=== PATIENT | female | born 1980 | race Caucasian/White ===

== ENCOUNTER 2017-03-26 11:48 | Outpatient (CLI) | payer MEDICAID ==
[~2017-03-26] VITALS: Ht 165.1 cm; Wt 75.8 kg
--- NOTE | 2017-03-26 12:39 | RADRPT ---
PROCEDURE: US OB biophysical profile. CLINICAL INDICATION: evaluation, contractions TECHNIQUE: Multiple sonographic images of the pelvis were obtained. The images were reviewed on a PACS workstation. COMPARISON: No prior studies are available for comparison. FINDINGS: There is a single viable intrauterine gestation. Cardiac activity is present with 163 beats per min [place]. There is a vertex presentation. The placenta is posterior. There is no evidence of placental abruption. There is a normal amount of amniotic fluid with an ANGEL = 13.0 cm. Biophysical profile: movement 2/2 tone 2/2. breathing 2/2 ANGEL 2/2 Total 04/17 RPTAT: AA . IMPRESSION: Normal biophysical profile. Normal ANGEL. Physician David Date Time Electronically viewed and signed by Physician David on 03/26/2017 12:39 RA/
[2017-03-26 12:42] VITALS: Ht 165.1 cm; Wt 75.8 kg
[2017-03-26 12:43] VITALS: BP 112/56; PULSE 101; RESP 18
[2017-03-26] MEDS ORDERED: PRENAT PO (12:45)
--- NOTE | 2017-03-26 13:02 | QN ---
Documentation Comment iup 36 weeks cat II tracing vss exam wnl a/p iup 36 weeks cat II tracing extended obs OFT SAMANIEGO MD Mar 26, 2017 13:01
--- NOTE | 2017-03-26 18:03 | TRIAGE ---
OB Triage Datetime Report Generated by CPN: 03/26/2017 18:03 Datetime: 03/26/2017 15:47 Time of Arrival: 03/26/2017 11:43 EGA: 37.3 Arrived By: Ambulatory Arrived From: Home Chief Complaint: DECEL IN NST Movement: Present Contractions: Denies/Absent Rupture of Membranes: Denies Vaginal Bleeding: None Vaginal Discharge: Denies Recent Sexual Intercouse: Denies Abdominal Trauma: Not Applicable Patient Complaints: None Additional Patient Complaints: FASTING GLUCOSE THIS MORNING 70MG/ DL Time Provider Notified: 03/26/2017 12:12 Provider Notified: DR. SAMUELS Initial Plan: BPP, EXTENDED MONITORING Datetime: 03/26/2017 14:15 Labor Evaluation Frequency: irreg Monitor Mode: External Duration (sec)2399: 50-80 Quality: Moderate Pattern: Normal: <= 5 Contractions in 10 Minutes Resting Tone [place]: Relaxed Heart Rate FHR Baseline Rate: 145 Monitor Mode: External US Variability: Moderate 6-25 bpm Accelerations: 15X15 Decelerations: None Category: Category I Comments: nst reactive for gestational age Datetime: 03/26/2017 13:08 Labor Evaluation Frequency: irreg Monitor Mode: External Duration (sec)2399: 50-70 Quality: Mild Pattern: Normal: <= 5 Contractions in 10 Minutes Resting Tone [place]: Relaxed Heart Rate FHR Baseline Rate: 150 Monitor Mode: External US Variability: Moderate 6-25 bpm Accelerations: 15X15 Decelerations: None Category: Category I Comments: nst reactive for gestational age Datetime: 03/26/2017 12:30 Maternal Assessment Level of Consciousness: Fully Conscious DTR's/Clonus: DTRs 2+; No Clonus Headache: Denies Blurred Vision: No Respiratory Effort: Unlabored; Regular Rhythm; Equal Expansion Breath Sounds, Left: Clear and Equal Breath Sounds, Right: Clear and Equal Nausea/Vomiting: Denies RUQ Epigastric Pain: Denies Facial Edema: None Fall Risk Assessment History of Falling: (0) No Secondary Diagnosis: (0) No Ambulatory Aid: (0) Bedrest/Nurse Assist IV Therapy: (0) No Gait: (0) Normal/Bedrest/Immobile Mental Status: (0) Oriented to Own Ability Fall Score: 0 Fall Risk Score Definition: No Risk: No action required Datetime: 03/26/2017 12:00 Stage of : OB Triage Maternal Assessment Level of Consciousness: Fully Conscious DTR's/Clonus: DTRs 2+; No Clonus Headache: Denies Blurred Vision: No Respiratory Effort: Unlabored; Regular Rhythm; Equal Expansion Breath Sounds, Left: Clear and Equal Breath Sounds, Right: Clear and Equal Nausea/Vomiting: Denies RUQ Epigastric Pain: Denies Lower Extremities Edema: None Degree: None Upper Extremities Edema: None Degree: None Facial Edema: None Temperature Route: Axillary Fall Risk Assessment History of Falling: (0) No Secondary Diagnosis: (0) No Ambulatory Aid: (0) Bedrest/Nurse Assist IV Therapy: (0) No Gait: (0) Normal/Bedrest/Immobile Mental Status: (0) Oriented to Own Ability Fall Score: 0 Fall Risk Score Definition: No Risk: No action required
== END 2017-03-26 15:00 | disposition home or self-care (01) ==
LOC: OBT 11:48 → L-D 11:48 → OBT 15:00
PROVIDERS: ATTEND Obstetrics & Gynecology
DX: O26.893 Other specified pregnancy related conditions, third trimester (principal); Z3A.36 36 weeks gestation of pregnancy
CPT/HCPCS: 76818; Z7500; G0463

== ENCOUNTER 2017-04-01 13:57 | Outpatient (CLI) | payer MEDICAID ==
[~2017-04-01] VITALS: Ht 157.5 cm; Wt 75.8 kg
[~2017-04-01 13:57] MED LIST: PRENAT PO
[2017-04-01 14:10] VITALS: Ht 157.5 cm; Wt 75.8 kg
--- NOTE | 2017-04-01 15:48 | RADRPT ---
PROCEDURE: OB ultrasound for biophysical profile CLINICAL INDICATION: Biophysical profile. . TECHNIQUE: Obstetrical ultrasound for biophysical profile. Transabdominal views are obtained. COMPARISON: 03/28/2017 FINDINGS: Single intrauterine gestation. Presentation: Cephalic. Placenta: Anterior. No evidence of placental abruption. No evidence of placenta previa. breathing movement = 2/2 tone = 2/2 motion = 2/2 ANGEL = 2/2 ANGEL = 10.1 cm; previously 15.6 cm heart rate: 135 beats per minute IMPRESSION: Single intrauterine gestation. Biophysical profile 04/17 RPTAT: AADD .Alvino Wang MD, MD Date Time Electronically viewed and signed by .Alvino Wang MD, on 04/01/2017 15:48 .B/
--- NOTE | 2017-04-01 16:02 | TRIAGE ---
OB Triage Datetime Report Generated by CPN: 04/01/2017 16:02 Datetime: 04/01/2017 15:46 Labor Evaluation Frequency: OCC Monitor Mode: External Quality: Mild Pattern: Normal: <= 5 Contractions in 10 Minutes Resting Tone [place]: Relaxed Heart Rate FHR Baseline Rate: 145 Monitor Mode: External US FHR Baseline Changes: No Baseline Change Variability: Moderate 6-25 bpm Accelerations: 15X15 Decelerations: None Category: Category I Pain Assessment Pain Presence: None/Denies Datetime: 04/01/2017 15:27 Labor Evaluation Frequency: OCC Monitor Mode: External Quality: Mild Pattern: Normal: <= 5 Contractions in 10 Minutes Resting Tone [place]: Relaxed Heart Rate FHR Baseline Rate: 140 Monitor Mode: External US FHR Baseline Changes: No Baseline Change Variability: Moderate 6-25 bpm Accelerations: 15X15 Decelerations: None Category: Category I Datetime: 04/01/2017 14:14 Stage of : OB Triage Assessment Type: Triage Maternal Assessment Level of Consciousness: Fully Conscious DTR's/Clonus: DTRs 2+; No Clonus Headache: Denies Blurred Vision: No Respiratory Effort: Unlabored; Regular Rhythm; Equal Expansion Breath Sounds, Left: Clear and Equal Breath Sounds, Right: Clear and Equal Nausea/Vomiting: Denies RUQ Epigastric Pain: Denies Upper Extremities Edema: None Degree: None Facial Edema: None Temperature Route: Oral Fall Risk Assessment History of Falling: (0) No Secondary Diagnosis: (0) No Ambulatory Aid: (0) Bedrest/Nurse Assist IV Therapy: (0) No Gait: (0) Normal/Bedrest/Immobile Mental Status: (0) Oriented to Own Ability Fall Score: 0 Fall Risk Score Definition: No Risk: No action required Monitor Mode: External Heart Rate FHR Baseline Rate: 155 Monitor Mode: External US FHR Baseline Changes: No Baseline Change Variability: Moderate 6-25 bpm Accelerations: 15X15 Decelerations: None Category: Category I Pain Assessment Pain Presence: None/Denies Vaginal Exam Membrane Status: Intact Datetime: 04/01/2017 13:50 Time of Arrival: 04/01/2017 13:50 EGA: 38.2 Chief Complaint: DFM Movement: Present Contractions: Denies/Absent (Annotations: Data stored by N on behalf of user) Rupture of Membranes: Denies Vaginal Bleeding: None Vaginal Discharge: Denies Recent Sexual Intercouse: Denies Abdominal Trauma: Not Applicable Patient Complaints: Other Time Provider Notified: 04/01/2017 14:00 Provider Notified: DR SAMUELS Initial Plan: BPP AND NST Datetime: 03/26/2017 15:47 EGA: 37.3 Datetime: 03/26/2017 12:30 Fall Score: 0 Fall Risk Score Definition: No Risk: No action required Datetime: 03/26/2017 12:00 Fall Score: 0 Fall Risk Score Definition: No Risk: No action required
--- NOTE | 2017-04-01 16:21 | PN ---
Triage Information Date/Time 37 years old female presented herself to triage unit complaining of decreased movement she is a 4 para 3 38 weeks and 2 days underwent biophysical profile 8 out of 8 reactive NST her a level 10,1 her vital signs blood pressure 113/77 pulse 76 respiration 18 temperature 98.2 she was reassured advised to follow-up at the clinic within the next 2 days Weeks of Gestation 38 weeks 2 : 4 Para: 3 Diabetes: none Hypertention: none Objective Heart Rate: 140's Contractions: None Exam No pelvic exam Assessment/Plan Diagnosis 38 weeks 2 days came to the hospital for decreased movement biophysical profile 04/17 reactive NST follow-up with the clinic in 2 days SOCORRO SAMUELS MD Apr 01, 2017 16:21
== END 2017-04-01 16:00 | disposition home or self-care (01) ==
LOC: OBT 13:57 → L-D 13:58 → OBT 16:00
PROVIDERS: ATTEND Obstetrics & Gynecology
DX: O36.8130 Decreased fetal movements, third trimester, not applicable or unspecified (principal); Z3A.38 38 weeks gestation of pregnancy
CPT/HCPCS: 76818; Z7500; G0463

== ENCOUNTER 2017-04-05 14:44 | Inpatient (IN) | payer MEDICAID ==
[~2017-04-05] VITALS: Ht 165.1 cm; Wt 76.6 kg
[2017-04-05 15:13] VITALS: BP 115/68; PULSE 88; RESP 18
[2017-04-05 15:14] VITALS: Ht 165.1 cm; Wt 76.6 kg
[2017-04-05] MEDS: LACTATED RINGER'S 1,000 ML IV SCH (16:15)
[2017-04-05 16:32] LABS: BASOPHIL # 0.1 10^3/ul (0.0-0.1); BASOPHILS % 0.5 % (0.0-2.0); EOSINOPHILS # 0.1 10^3/ul (0.0-0.5); EOSINOPHILS % 0.8 % (0.0-7.0); HEMATOCRIT 33.7 % (37.0-47.0); HEMOGLOBIN 11.3 g/dl (12.0-16.0); LYMPHOCYTES # 1.5 10^3/ul (0.8-2.9); MEAN CORPUSCULAR HGB CONC 33.5 g/dl (32.0-37.0); MEAN CORPUSCULAR VOLUME 83.6 fl (82.0-101.0); MEAN PLATELET VOLUME 10.9 fl (7.4-10.4); MONOCYTE # 0.9 10^3/ul (0.3-0.9); MONOCYTES % 9.9 % (0.0-11.0); NEUTROPHIL # 6.4 10^3/ul (1.6-7.5); NEUTROPHILS % 70.4 % (39.0-77.0); PLATELET COUNT 219 10^3/UL (140-415); RED BLOOD COUNT 4.03 10^6/ul (4.20-5.40); RED CELL DISTRIBUTION WIDTH 14.5 % (11.5-14.5); WHITE BLOOD COUNT 9.1 10^3/ul (4.8-10.8)
[2017-04-05 16:47] LABS: INR 0.89; PT RATIO 0.9
[2017-04-05 16:48] LABS: PARTIAL THROMBOPLASTIN TIME 26.7 Sec (25.0-35.0)
--- NOTE | 2017-04-05 16:59 | RADRPT ---
PROCEDURE: US OB. CLINICAL INDICATION: Size and dates TECHNIQUE: Multiple sonographic images of the pelvis and gravid uterus were obtained. The images were reviewed on a PACS workstation. COMPARISON: No prior studies are available for comparison. FINDINGS: There is a single viable intrauterine gestation. Cardiac activity is present with 150 beats per min [place]. There is a vertex presentation. The placenta is posterior. There is no evidence for an abruption or placenta previa. Measurements were made in order to determine age. The results are as follows: BPD =8.9 cm HC =32.7 cm AC =34.9 cm FL =7.1 cm Estimated gestational age of approximately 37 weeks and 1 day based on ultrasound measurements. Clinical age: 38 weeks and 6 days. The estimated date of delivery is 04/25/17, based on ultrasound measurements. The EFW = 3281 g, 38.5%, based on LMP age. RPTAT: AA IMPRESSION: Single viable intrauterine gestation of approximately 37 weeks and 1 day based on ultrasound measur ements. .Bennie Painting MD, Date Time Electronically viewed and signed by .Bennie Painting MD, on 04/05/2017 16:59 .S/
[2017-04-05] MEDS ORDERED: MISOPROSTOL 200 MCG TAB PR PRN (20:00)
[2017-04-05] MEDS ORDERED: LIDOCAINE 1% (MPF) 30 ML INJ INJ PRN (20:00)
[2017-04-05] MEDS ORDERED: OXYTOCIN 30 UNITS/LR 500 ML IV SCH ×3 (20:00)
[2017-04-05] MEDS ORDERED: OXYTOCIN 30 UNITS/LR 500 ML IV PRN (20:00)
[2017-04-05] MEDS ORDERED: METHYLERGONOVINE 0.2 MG INJ IM PRN (20:00)
[2017-04-05] MEDS ORDERED: CARBOPROST 250 MCG INJ IM PRN (20:00)
[2017-04-05] MEDS ORDERED: BUTORPHANOL 2 MG INJ IV PRN (20:00)
[2017-04-05] MEDS ORDERED: IBUPROFEN 600 MG TAB PO PRN (20:00)
[2017-04-05] MEDS: DEXTROSE 5%-LR 1,000 ML IV PRN (20:22)
--- NOTE | 2017-04-05 21:06 | HP ---
Date/Time of Note Date/Time of Note DATE: 04/05/17 TIME: 20:27 OB - History Hx of Present Free Text/Dictation 37y.o at 38 w6d sent form antepartum test for uterine contractions for further evalustion patient was having biweekly NST for A1DM found to have U.C also breech presentation which was repeated while doing EFW revealed vertex presentation. EFM shows multiple variable decelerations and VE 1-2/70%/-2 decided to induce by using pitocin. Chief Complaint: u.c Estimated Due Date: Apr 13, 2017 : 4 Para: 3 Spontaneous : 0 Therapeutic : 0 Care: Limited Care Ultrasounds: No ultrasounds, Other (lae entry, 3rd tri u/s) Obstetrical Complications: Gestational Diabetes Medical Complications: None Past Family/Social History * Past Medical, Surgical, Family and Obstetric Histories reviewed from chart. Blood Type: B+ Rubella: immune RPR/VDRL: Negative GBS Status: Negative HBsAG: Negative OB Admission Exam Vital Signs Vital Signs Vital Signs Date Time Temp Pulse Resp B/P Pulse Ox O2 Delivery O2 Flow Rate FiO2 04/05/17 15:13 97.8 88 18 115/68 99 Physical Exam HEENT: WNL Heart: Rhythm Normal Lungs: Clear, Equal Abdomen: WNL Extremities: Normal Reflexes: Normal Cervical Dilatation: 1cm Effacement: 75% Station: -2 Membranes: Intact Amniotic Fluid: Unevaluable Heart Rate: 130's Accelerations: Accelerations Present Decelerations: Variable Decelerations Varibility: Moderate Contractions on Admission: 6-10 Minutes Apart Intensity: Mild Last 72 hourBlood Glucose Bedside Glucose - 72 Hours Test 04/05/17 20:00 Bedside Glucose 66mg/dL (70-220) L Last 72 hours Lab Results CBC & BMP 04/05/17 14:17 OB Assessment/Plan Reason for admission: induction of labor Plan: Expectant Management, Induction Induction Method: per Pitocin Protocol DANIEL MARIO MD Apr 05, 2017 21:04
[2017-04-05] MEDS ORDERED: LACTATED RINGER'S 1,000 ML IV PRN (22:00)
[2017-04-06] MEDS ORDERED: FENTAnyl 2MCG/ML-ROPIV 0.2% 100 ML ONE (03:33)
[2017-04-06] MEDS: DEXTROSE 5%-LR 1,000 ML IV PRN (03:51)
[2017-04-06] MEDS ORDERED: MINERAL OIL LIGHT 10 ML VIAL TOP ONE (06:30)
[2017-04-06] MEDS ORDERED: ONDANSETRON 4 MG INJ IV PRN ×2 (07:00→21:00)
[2017-04-06] MEDS ORDERED: NALOXONE (0.4 MG/ML) INJ IV PRN (07:00)
--- NOTE | 2017-04-06 07:32 | NSTRPT ---
NST Information Datetime Report Generated by CPN: 04/06/2017 07:32 Datetime: 04/05/2017 13:17 NST Information EGA: 38.6 Test Number: 5 Time on Monitor: 04/05/2017 13:31 Time off Monitor: 04/05/2017 14:23 NST Duration (Min): 52 Reason for NST: Diabetes Mellitus; Other Reason for NST Other: A1DM Test and Monitor Explained: Monitor Explained; Test Explained; Verbalized Understanding Pulse: 84 Resp: 20 SBP: 104 DBP: 65 Test Evaluation NST Interventions: Reposition Patient Patient States Movement: Present Contraction Frequency: 4 in 50 minutes x 100 sec FHR Baseline : 135 Variability: Moderate 6-25bpm Accelerations: 15X15 Decelerations: Variable FHR Category: Category I NST Results: Reactive Comments: Pt to U/S, angel 13.8cm, breech Dr. Chapman covering for Dr. Lane. Dr. Chapman called and informed of contraction frequency a nd breech presentation of fetus. Orders received to send pt to OB Triage now. 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 1423-Pt to OB Triage now. Discussed kick counts, follow-up NST/ANGEL appointment given. Pt ve rbalizes understanding and denies any further questions at this time. Electronically Signed By E-Signature: with User ID: [id number] Datetime: 04/02/2017 10:30 NST Information EGA: 38.3 NST Duration (Min): 31 Datetime: 03/28/2017 11:19 NST Information EGA: 37.5 NST Duration (Min): 35 Datetime: 03/26/2017 09:50 NST Information EGA: 37.3 NST Duration (Min): 85 Datetime: 03/22/2017 15:22 NST Information EGA: 36.6 Datetime: 03/22/2017 14:52 NST Duration (Min): 22
[2017-04-06] MEDS: FENTAnyl 2MCG/ML-ROPIV 0.2% 100 ML BAG EPI SCH ×2 (08:47→13:33)
[2017-04-06] MEDS: LACTATED RINGER'S 1,000 ML IV SCH ×3 (09:11→16:00)
--- NOTE | 2017-04-06 18:40 | LDN ---
Date/Time of Note Date/Time of Note DATE: 04/06/17 TIME: 18:35 Delivery Summary Normal spontaneous vaginal delivery of a baby boy from OA position shoulders delivered without difficulty rest of the baby's body followed cord clamped after stopped pulsation placenta spontaneous expulsion inspected complete blood loss 200 mL perineal and vagina inspected no laceration uterus firm and well contracted Weeks of Gestation 39 week Placenta Delivered: Spontaneously Meconium: none Episiotomy: No Laceration repair: None Anesthesia type: Epidural Estimated blood loss: 200 Sponge & Needle done & correct: Yes All needle counts correct: Yes Any foreign bodies felt in the: No Problems: Delivery Information Sex Sex: male Apgars 1 Minute: 9 5 Minute: 9 Suctioning Nose & mouth suctioned at sadia: Yes Delee suction performed: No Umbilical Cord Umbilical cord with: 3 Vessels Cord presentations: no nuchal cord Cord Blood was obtained: Yes SOCORRO SAMUELS MD Apr 06, 2017 18:40
[2017-04-06 20:30] VITALS: BP 109/63; PULSE 87; RESP 19
[2017-04-06] MEDS ORDERED: WITCH HAZEL/GLYCERIN PAD PR PRN (21:00)
[2017-04-06] MEDS ORDERED: ACETAMINOPHEN 325 MG TAB PO PRN (21:00)
[2017-04-06] MEDS ORDERED: OXYCODONE/ASPIRIN (4.88/325) TAB PO PRN ×2 (21:00)
[2017-04-06] MEDS ORDERED: BENZOCAINE 20% 56 ML SPRAY TOP PRN (21:00)
[2017-04-06] MEDS ORDERED: ACETAMINOPHEN/CODEINE #3 TAB PO PRN ×2 (21:00)
[2017-04-06] MEDS ORDERED: DIBUCAINE 1% 30 GM OINT PR PRN (21:00)
[2017-04-06 21:30] VITALS: BP 118/69; PULSE 89; RESP 18
[2017-04-06] MEDS: SENNA/DOCUSATE NA (8.6MG/50MG) TAB PO SCH (21:47)
[2017-04-06] MEDS: OXYTOCIN 30 UNITS/LR 500 ML IV SCH (23:32)
[2017-04-06] MEDS: IBUPROFEN 600 MG TAB PO SCH (23:32)
[2017-04-06] MEDS: LANOLIN 7 GM TUBE TOP PRN (23:32)
[2017-04-07] VITALS: BP 108/80; PULSE 92; RESP 18
[2017-04-07] MEDS: OXYTOCIN 30 UNITS/LR 500 ML IV SCH (03:43)
[2017-04-07 04:05] VITALS: BP 109/59; PULSE 69; RESP 19
[2017-04-07] MEDS: IBUPROFEN 600 MG TAB PO SCH ×4 (05:32→23:52)
[2017-04-07 07:14] LABS: HEMATOCRIT 30.4 % (37.0-47.0); HEMOGLOBIN 10.2 g/dl (12.0-16.0); MEAN CORPUSCULAR HEMOGLOBIN 28.3 pg (29.0-33.0); MEAN CORPUSCULAR HGB CONC 33.6 g/dl (32.0-37.0); MEAN CORPUSCULAR VOLUME 84.4 fl (82.0-101.0); MEAN PLATELET VOLUME 11.4 fl (7.4-10.4); PLATELET COUNT 164 10^3/UL (140-415); RED CELL DISTRIBUTION WIDTH 14.5 % (11.5-14.5); WHITE BLOOD COUNT 12.9 10^3/ul (4.8-10.8)
[2017-04-07 07:22] LABS: POSITIVE DIFF @See below
[2017-04-07 07:54] VITALS: BP 101/79; PULSE 76; RESP 18
[2017-04-07] MEDS: SENNA/DOCUSATE NA (8.6MG/50MG) TAB PO SCH ×2 (10:10→20:50)
--- NOTE | 2017-04-07 10:11 | PN ---
Date/Time of Note Date/Time of Note DATE: 04/07/17 TIME: 10:10 OB Subjective Subjective Subjective day 1 Afebrile vital signs are stable Abdomen soft uterus firm lochia normal Extremity normal Laboratory Tests Test 04/06/17 15:01 04/07/17 06:32 Bedside Glucose 70mg/dL White Blood Count 12.910^3/ul Red Blood Count 3.6010^6/ul Hemoglobin 10.2g/dl Hematocrit 30.4% Mean Corpuscular Volume 84.4fl Mean Corpuscular Hemoglobin 28.3pg Mean Corpuscular Hemoglobin Concent 33.6g/dl Red Cell Distribution Width 14.5% Platelet Count 67275^3/UL Mean Platelet Volume 11.4fl Neutrophils % % Lymphocytes % % Monocytes % % Eosinophils % % Basophils % % Nucleated Red Blood Cells % 0.0/100WBC Neutrophils # 10^3/ul Lymphocytes # 10^3/ul Monocytes # 10^3/ul Eosinophils # 10^3/ul Basophils # 10^3/ul Nucleated Red Blood Cells # 10^3/ul Current Medications Medications (Trade) Dose Ordered Sig/Sarah Route PRN Reason Start Time Stop Time Status Last Admin Dose Admin Lactated Ringer's 1,000 ml @ 125 mls/hr Q8H IV 04/05/17 16:00 04/06/17 20:59 DC 04/06/17 09:11 Oxytocin/Lactated Ringer's 500 ml @ 0 mls/hr TITRATE IV 04/05/17 20:00 04/06/17 20:59 DC 04/05/17 23:15 Butorphanol Tartrate (Stadol) 2 mg Q2H PRN IV PAIN 04/05/17 20:00 04/06/17 21:00 DC Lidocaine 30 ml 30 ml ONCE PRN INJ EPISIOTOMY/TEARING 04/05/17 20:00 04/06/17 21:00 DC Oxytocin/Lactated Ringer's 500 ml @ 125 mls/hr ONCE -MAY REPEAT X1 IV 04/05/17 20:00 04/06/17 21:00 DC 04/06/17 18:48 Oxytocin/Lactated Ringer's 500 ml @ 125 mls/hr ONCE IV 04/05/17 20:00 04/06/17 21:00 DC 04/06/17 19:36 Ibuprofen 600 mg 600 mg ONCE PRN PO Mild Pain (Pain Score 1-3) 04/05/17 20:00 04/06/17 21:00 DC Lactated Ringer's 1,000 ml @ 2,000 mls/hr Q30M PRN IV PRE-EPIDURAL BOLUS 04/05/17 22:00 04/06/17 20:59 DC Oxytocin/Lactated Ringer's 500 ml @ 0 mls/hr ONCE PRN IV For Hemorrhage Management 04/05/17 20:00 04/06/17 21:00 DC Methylergonovine Maleate (Methergine) 0.2 mg ONCE PRN IM VAGINAL BLEEDING 04/05/17 20:00 04/06/17 21:00 DC Carboprost Tromethamine (Hemabate) 250 mcg ONCE PRN IM VAGINAL BLEEDING 04/05/17 20:00 04/06/17 21:00 DC Misoprostol 1000 mcg 1,000 mcg ONCE PRN FL VAGINAL BLEEDING 04/05/17 20:00 04/06/17 21:00 DC Dextrose/Lactated Ringer's 1,000 ml @ 125 mls/hr Q8H PRN IV DECREASED GLUCOSE 04/05/17 20:30 04/06/17 20:59 DC 04/06/17 03:51 Fentanyl/ Ropivacaine 100 ml @ STK-MED ONCE .ROUTE 04/06/17 03:33 04/06/17 03:34 DC Mineral Oil (Muri-Lube) 2 ml ONCE ONCE TOP 04/06/17 06:30 04/06/17 06:31 DC Ondansetron HCl (Zofran Inj) 4 mg Q6H PRN IV NAUSEA AND/OR VOMITING 04/06/17 07:00 04/06/17 21:00 DC Naloxone HCl (Narcan) 0.2 mg Q2M PRN IV FOR RESP RATE 8 OR LESS 04/06/17 07:00 04/06/17 21:00 DC Fentanyl/ Ropivacaine 100 ml 100 ml EPIDURAL (PCEA) EPI 04/06/17 07:00 04/06/17 21:00 DC 04/06/17 13:33 Oxytocin/Lactated Ringer's 500 ml @ 125 mls/hr Q4H IV 04/06/17 20:57 04/07/17 04:56 DC 04/07/17 03:43 Ibuprofen (Motrin) 600 mg Q6 PO 04/07/17 00:00 04/07/17 05:32 Acetaminophen (Tylenol Tab) 650 mg Q4H PRN PO PAIN LEVEL 1-5 04/06/17 21:00 Acetaminophen/ Codeine Phosphate (Tylenol No.3) 1 tab Q4H PRN PO PAIN LEVEL 1-5 04/06/17 21:00 Acetaminophen/ Codeine Phosphate (Tylenol No.3) 2 tab Q4H PRN PO PAIN LEVEL 6-10 04/06/17 21:00 Oxycodone/Aspirin (Percodan) 1 tab Q3H PRN PO PAIN LEVEL 1-5 04/06/17 21:00 Oxycodone/Aspirin (Percodan) 2 tab Q3H PRN PO PAIN LEVEL 6-10 04/06/17 21:00 Ondansetron HCl (Zofran Inj) 4 mg Q6H PRN IV NAUSEA AND/OR VOMITING 04/06/17 21:00 Senna/Docusate Sodium (Senokot-S) 1 tab BID PO 04/06/17 21:00 04/06/17 21:47 Witch Anais/ Glycerin (Tucks Pads) 1 pad BEDSIDE MEDICATION PRN FL HEMORRHOID/EPISIOTMY PAIN 04/06/17 21:00 Benzocaine (Dermoplast [place]) 1 spray BEDSIDE MEDICATION PRN TOP HEMORRHOID/EPISIOTMY PAIN 04/06/17 21:00 Dibucaine (Nupercainal) 1 applic BEDSIDE MEDICATION PRN FL HEMORRHOID/EPISIOTMY PAIN 04/06/17 21:00 Lanolin (Zsk-U-Qswbue) 1 applic BEDSIDE MEDICATION PRN TOP BEDSIDE FOR TRISTAN TO NIPPLES 04/06/17 21:00 04/06/17 23:32 Measles/Mumps/ Rubella Vaccine Live (Mmr Ii Vaccine) 0.5 ml ONCE ONCE SC* 04/08/17 09:00 04/08/17 09:01 SOCORRO SAMUELS MD Apr 07, 2017 10:11
[2017-04-07 10:25] LABS: METAMYELOCYTES %M 1 % (0-0); MONOCYTES % (M) 8 % (0-11)
[2017-04-07 10:26] LABS: GIANT THROMBO% (M) 1 % (0-0); PLATELET ESTIMATE NORMAL
[2017-04-07 12:01] VITALS: BP 86/45; PULSE 78; RESP 16
[2017-04-07 15:45] VITALS: BP 86/45; PULSE 78; RESP 18
[2017-04-07 20:15] VITALS: BP 100/59; PULSE 77; RESP 18
[2017-04-08 04:00] VITALS: BP 107/57; PULSE 72; RESP 17
[2017-04-08] MEDS: IBUPROFEN 600 MG TAB PO SCH (05:36)
[2017-04-08 08:00] VITALS: BP 107/72; PULSE 75; RESP 18
[2017-04-08] MEDS: SENNA/DOCUSATE NA (8.6MG/50MG) TAB PO SCH (08:22)
[2017-04-08] MEDS: LANOLIN 7 GM TUBE TOP PRN (08:25)
--- NOTE | 2017-04-08 08:38 | PD.PPDC ---
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 Patient Condition: Good Diet Diet: Resume Regular Diet Activity/Restrictions Activity: Normal Activity May Shower Restrictions: No Exercising No Lifting No Driving No Sexual Activity Nothing in the Vagina No [place] No Tampons, douche Wound/Drain Care Instructions Wound/Drain Care Instructions: Wash with soap and water Keep clean and dry Follow-up Follow-up with Physician: 2, Week/Weeks Provider Information: Appointment clinic in 2 weeks for check Return to clinic for TECHNICAL SUPPORT [employer] Instructions: Fever greater than 101 Chills Worsening abdominal pain Excessive Vaginal Bleeding More than 2 pads per hour Unable to tolerate diet OB Instructions: Breast Tenderness Depression Blurried Vision Headache SOCORRO SAMUELS MD Apr 08, 2017 08:38
--- NOTE | 2017-04-08 08:40 | DS ---
Date/Time of Note Date/Time of Note DATE: 04/08/17 TIME: 08:39 Discharge Summary Admission/Discharge Info Admit Date/Time Apr 05, 2017 at 19:57 Discharge Date/Time April 08, 2017 at 8:30 AM Discharge Diagnosis Day 2 post normal vaginal delivery Patient Condition: Good Procedures Normal vaginal delivery Hx of Present Illness Term admitted in labor Hospital Course Satisfactory recovery good condition on discharge Home Meds Reported Medications Multivit/Min/Fol Ac/Iron/Pren* ( S*) 1 Tab Tab, 1 TAB PO DAILY, TAB 03/26/17 Follow-up Plan instructions given recommended to make appointment to be seen at the clinic in 2 weeks Primary Care Provider Care Physician No Primary Time spent on discharge: < 30 minutes SOCORRO SAMUELS MD Apr 08, 2017 08:40
[2017-04-08] MEDS ORDERED: MEASLES,MUMPS,RUBELLA VACCINE INJ SC* ONE (09:00)
== END 2017-04-08 11:15 | disposition home or self-care (01) | DRG 775 ==
LOC: L-D 14:44 → OBT 14:44 → L-D 19:57 → PP1 04-06 20:33
PROVIDERS: ADMIT Obstetrics & Gynecology; ATTEND Obstetrics & Gynecology
PROC: 10E0XZZ Delivery of Products of Conception, External Approach (ICD-10-PCS; principal; 2017-04-06)
PROC: 3E033VJ Introduction of Other Hormone into Peripheral Vein, Percutaneous Approach (ICD-10-PCS; 2017-04-06)
DX: O80 Encounter for full-term uncomplicated delivery (principal); Z37.0 Single live birth; Z3A.39 39 weeks gestation of pregnancy
CPT/HCPCS: 36415; 62319; 76815; 82962; 85025; 85610; 85730; 86592; 86850; 86900; 86901; 96360; 96361; G0463; J2590; J3010; J7120